=== PATIENT | male | born 1985 | race Caucasian/White ===

== ENCOUNTER 2016-08-26 20:45 | Inpatient (IN) | payer SELFPAY ==
--- NOTE | ~2016-08-26 | CN ---
Consultation Report [facility] [address] [place]. [address] NAME: CARLIN ROMAN : 87 STATUS : ADM IN [facility]#: [id number] AGE: 30 ADM/REG DATE : 08/26/16 MR#: [id number] REPORT SERV DATE: 08/27/16 DICTATED BY: AUSTIN OTERO DATE: 08/27/16 REPORT STATUS : Draft TRANSCRIBED BY: MODFelicia DATE: 08/27/16 INFECTIOUS DISEASE CONSULT DATE OF CONSULTATION: REASON FOR CONSULT: Possible endocarditis HISTORY OF PRESENT ILLNESS: 30 years old white male, with a long history of IV drug use, MSSA empyema, and possible endocarditis in 2012, status post decortication, tricuspid valve endocarditis, with lung emboli in 2014, treated here at [facility]. He presented with several days of shortness of breath, whole body aches, swelling from the ankles and then lower legs, rash that progressed quickly from the ankles to the entire legs and lower trunk. He is injecting himself of preference with Opana, but had to resort to heroin because of the cost. He uses bottled water and reuses needles that he washes with alcohol. He filters through cotton. He went to the emergency room at [place] I think on 08/24/2016. The records indicate that he was given vancomycin or they intended to give him vancomycin. He was then transferred to [place] where he states he stayed in the ER for 16 hours, but he felt he was not getting adequate treatment so he left. Microbiology records from [place] indicates that blood culture grew MRSA, with SERVANDO to vancomycin of 2, SERVANDO to daptomycin of 1. Similarly, blood culture at [place] grew MRSA with SERVANDO to vancomycin of 1 and 2 daptomycin of 0.5. After he left [place], he went home and then came here. From what the nurse tells me, he injected himself perhaps at home. When he arrived here in the emergency room, he was hypotensive, we could not get a central line, or he refused to get one, more blood cultures were collected and it sounds like he was given vancomycin. To which cefepime was added. LABORATORY DATA: Lab work showed a WBC of 5.5, hemoglobin 11, potassium 3.2, creatinine 0.7. Lactic acid 2.3, procalcitonin 0.39. Currently, he is in MICU. He is on Levophed at 10. It appears that he is producing urine. He has body aches. He had one soft stool. No urinary symptoms. No recent boils or wounds. Although, two weeks ago he had the left antecubital area boil or wounds that he popped himself with a switch box installer. He has some neck pain. Chest x-ray today shows progressing bilateral multifocal airspace disease. Lab work shows procalcitonin of 0.32, creatinine 0.5. WBC increased to 12.9, hemoglobin 10, platelets 190. Urine drug screen positive for opiates. Urinalysis with 1 white blood cells, many bacteria. CPK 14, bilirubin 1.5. Transaminases within normal limits. PAST MEDICAL HISTORY: As I mentioned above, plus he had positive hepatitis C antibodies in the past, history of kidney stones, arachnoid cyst, and maybe left deafness. FAMILY HISTORY: Diabetes. Consultation Report [address] [place]. [address] NAME: CARLIN ROMAN : 87 STATUS : ADM IN [facility]#: [id number] AGE: 30 ADM/REG DATE : 08/26/16 MR#: [id number] REPORT SERV DATE: 08/27/16 DICTATED BY: AUSTIN OTERO DATE: 08/27/16 REPORT STATUS : Draft TRANSCRIBED BY: MARTIN DATE: 08/27/16 SOCIAL HISTORY: He is a smoker. Uses IV drugs as I mentioned. It sounds like he lives in his grandmother's house, but I am not sure with whom. He does not work, might have been incarcerated recently, I did not ask details. MEDICATIONS ON ADMISSION: According to the chart include oxycodone. ALLERGIES: MEDICATIONS ADVERSE REACTIONS, PHENERGAN "MAKES HIM FEEL FUNNY." PHYSICAL EXAMINATION: GENERAL: Exam done in presence of his nurse Joycelyn, as well as the interview. He is alert and awake. HEENT: He has some oral mucosa erythema. He has broken teeth. HEART: Regular rhythm without any loud murmurs. LUNGS: Decreased sounds throughout, most at the left base. ABDOMEN: He does not relax it well for exam, not tender. EXTREMITIES: Hands and feet without signs of emboli. SKIN: He had a very faint redness on the feet and no obvious rash. He has a little scar on the left medial antecubital area. He has other scars over his forearms. His right hand is swollen. He has a good right radial artery pulse. ASSESSMENT/PLAN: 1. Methicillin-resistant Staphylococcus aureus sepsis with bacteremia and shock. 2. Bilateral lung infiltrates with cavitation in the right apex according to CT done at [place]. This is concerning for septic emboli. 3. Reported rash that appeared to have resolved. 4. IV drug use. 5. History of Methicillin-sensitive Staphylococcus aureus empyema in 2013 and history of Methicillin-resistant Staphylococcus aureus tricuspid valve endocarditis in 2015. Continue vancomycin. Discontinue cefepime. Pursue echocardiogram, first a transthoracic and he might need a transesophageal. He states recent HIV screen in assisted was negative and he does not need to be screened again. He agreed with viral hepatitis screening, actually he requested a hepatitis C viral load because he had a prior positive antibody and we will screen for hepatitis B with a surface antigen. Obviously, he needs treatment for addiction, because this would be his third episode of severe infection. He agreed to discussed about this and I asked the [facility] patient vice president safety to discussed with the patient, possibilities of treatment. I discussed with the patient and his nurse. IKER/MARTIN Austin Otero, Consultation Report [address] [place]. [address] NAME: CARLIN ROMAN : 87 STATUS : ADM IN [facility]#: [id number] AGE: 30 ADM/REG DATE : 08/26/16 MR#: [id number] REPORT SERV DATE: 08/27/16 DICTATED BY: AUSTIN OTERO DATE: 08/27/16 REPORT STATUS : Draft TRANSCRIBED BY: MARTIN DATE: 08/27/16 Gurvinder / [id number] CC: Brad Parnell M.D.
--- NOTE | ~2016-08-26 | CN ---
Consultation Report [facility] [address] [place]. [address] NAME: CARLIN ROMAN : 87 STATUS : ADM IN [facility]#: [id number] AGE: 30 ADM/REG DATE : 08/26/16 MR#: [id number] REPORT SERV DATE: 08/27/16 DICTATED BY: CHRISTOPHER PARNELL DATE: 08/27/16 REPORT STATUS : Draft TRANSCRIBED BY: MARTIN DATE: 08/27/16 CRITICAL CARE CONSULTATION. GREATER THAN 30 MINUTES CRITICAL CARE TIME. DATE OF CONSULTATION: HISTORY OF PRESENT ILLNESS: The patient arrived in the Medical ICU from the emergency room. He is a 30-year-old white male, drug user, who presents now with several week history of not feeling well, stiffness, pain, shaking chills. He is seen at [facility] last week and they told him he had pneumonia. He went home. Unclear if he left AMA or not. The patient was feeling awful for the past several days. He has had symptoms of shortness of breath. Information is also coupled with review of his [facility] records. The patient says he has been told he had a heart murmur last week at [facility], it is unclear if he has had this before. He describes diffuse pain in joints and limbs. He uses Opana and mixture of other narcotics and possibly . He says he has this rash that has developed over his whole body but it does not itch, not painful. He also has cramping myalgias. The rash does jordon. He has lost about 15 to 20 pounds. Poor appetite. PAST MEDICAL HISTORY: Significant for endocarditis in 2013 with MRSA bacteremia and septic emboli. He had empyema, 2015 with VAST procedure. He has had hepatitis C and has never been treated. He has history of arachnoid cyst in brain with some slight shift. PAST SURGICAL HISTORY: VATS procedure. He also has had renal stone, and he thinks he has hematuria. ALLERGIES: HE IS ALLERGIC TO TRAMADOL, TORADOL, DEMEROL, AND PHENERGAN. SOCIAL HISTORY: Smokes three-quarters pack per day. Does not drink. Uses Opana, amphetamines, heroin, and cocaine. FAMILY HISTORY: Significant for diabetes. MEDICATIONS: Currently using oxycodone 10 mg b.i.d. PHYSICAL EXAMINATION: VITAL SIGNS: On examination, he is a thin young male, who is having some myalgias throughout his entire body, red in appearance with blanching rash over most of his body. HEENT: Head is normocephalic. Sclerae and conjunctivae are clear at this time. NECK: Supple. Very poor dentition. CHEST: Clear to auscultation and percussion. No wheezing or rhonchi. CARDIAC: S1 and S2. There is distinct 3/6 murmur heard best at the base, radiating up. ABDOMEN: Scaphoid. Slightly tender to palpation. No rebound. EXTREMITIES: Swelling around the joints. No adenopathy noted. No abdominal organomegaly Consultation Report [place] [id number] [facility] [place]. [address] NAME: CARLIN ROMAN : 87 STATUS : ADM IN [facility]#: [id number] AGE: 30 ADM/REG DATE : 08/26/16 MR#: [id number] REPORT SERV DATE: 08/27/16 DICTATED BY: CHRISTOPHER PARNELL DATE: 08/27/16 REPORT STATUS : Draft TRANSCRIBED BY: MARTIN DATE: 08/27/16 noted. NEUROLOGIC: Cranial nerves 2 through 12 appear to be intact. He is oriented x3. He can move all extremities to this time. He has evidence of injection dsouza over his limbs. The capillary refill is good. REVIEW OF SYSTEMS: Negative except for what he claims is hematuria, but he says it is orange, I suspect, it may be related to the liver dysfunction. Also has chronic pain syndrome, being treated by a physician. LABORATORY DATA: Show procalcitonin 0.39. Sodium 136, potassium 3.2, chloride 102, carbon dioxide 26, BUN 7, creatinine 0.72, glucose 116, calcium 7.7, total protein 5.9, albumin 2.2, total bilirubin 1.4. ALT is 24, AST 22, alkaline phosphatase 84, acetaminophen level 2.6. Salicylate 1.7. Alcohol less than 10. Urine drug screen shows positive for opiates. BNP is 100.1. Urinalysis shows no hematuria. Urobilinogen of 2. No proteinuria noted. Lactate level is 2.3. His CBC shows an H and H 11.4 and 32.3, white count 5500, platelet count 180,000. PTT 33.8, INR 1.7. Differential has not been done. His chest x-ray shows possible evidence of a new septic embolism to the left upper chest versus nodule. Cardiac size is slightly enlarged. Pulmonary arteries appear to be within normal limits. No other infiltrates seen at this time. Compare with the x-ray of October 2014, there was no nodule at that time in the left upper lobe. IMPRESSION: 1. Possible acute endocarditis. 2. Hepatitis C. 3. Current drug use. 4. Diffuse rash with myalgias suspect toxic shock syndrome. PLAN: Continue lab. Antibiotics started in the ER. The patient currently is refusing central line access despite being given information regarding the effects of hypotension on his outcome of his kidney function and the fact that pressors may extravasate into the skin. The report of chest CTA, chest performed at [facility] this past week showed patchy infiltrates in the right perihilar mid lung field and medial aspect of the right upper lobe, most compatible pneumonia possible small right pleural effusion. CTA of the chest, numerous patchy opacities scattered throughout the lungs bilaterally, largest in the right lung apex medially with full cavitation. He has some adenopathy noted in the right hilum. Also septic emboli is in the differential as well as the chronic arachnoid cyst. We will have ID consult, and I will get a formal echocardiogram in the morning. Bedside echocardiogram by myself reveals a heart that is full, slightly dilated LV. There may be a vegetation on the valve on the left side. We will continue nafcillin and cefepime. He is on Lovenox subcu. RP/MODL Consultation Report [place] [id number] [place] [address] NAME: CARLIN ROMAN : [birth year] STATUS : ADM IN [facility]#: [id number] AGE: 30 ADM/REG DATE : 08/26/16 MR#: [id number] REPORT SERV DATE: 08/27/16 DICTATED BY: CHRISTOPHER PARNELL DATE: 08/27/16 REPORT STATUS : Draft TRANSCRIBED BY: MODL DATE: 08/27/16 Christopher Parnell M.D. / [id number] CC: Christopher Parnell M.D.
--- NOTE | ~2016-08-26 | DS ---
Discharge Summary [facility] [address] [place]. [address] NAME: CARLIN ROMAN : 87 STATUS : DIS IN PAT#: [id number] AGE: 30 ADM/REG DATE : 08/26/16 MR#: [id number] REPORT SERV DATE: 09/07/16 DICTATED BY: CHRISTOPHER INTERIANO DATE: 09/07/16 REPORT STATUS : Draft TRANSCRIBED BY: MARTIN DATE: 09/07/16 ADMISSION DATE: 08/26/2016 DISCHARGE DATE: 09/07/2016 FINAL DIAGNOSES: 1. Status post sepsis with shock. 2. MRSA bacteremia. 3. Tricuspid valve endocarditis. 4. IV drug abuse and opiate dependence. 5. Multifocal pneumonia. 6. History of large arachnoid cyst with chronic headache. CONSULTING PHYSICIAN: Dr. Parnell with Critical Care; Dr. Izquierdo for ID; Dr. Murdock for Cardiology; and Dr. Severino for Palliative Care. HOSPITAL COURSE: Please see the H and P done by Dr. Jenaro Sagastume dated on 08/27/2016 and the interim discharge summary done by Dr. Keenan on 09/07/2016. Since I took over today, the patient was seen by Palliative Care and I have discussed it with them that the patient is unhappy because he wants to have an increase in his pain medications. Dr. Moore has been dealing with him, and after much discussion, the patient will be placed on a higher dose of his medication care of Dr. Moore with the caveat that the patient would have his room checked if there is any kind of drug use. He has four other people in his room, and after a few hours, the patient decided that he would sign out against medical advice. The staff tried to convince him to stay, however, he refused. When we got the PICC line removed, we wanted him to stay for about an hour or so to make sure that it is doing well, but he walked out hopefully that he will follow up with a regular doctor and stop his IV drug use. Chances of him being readmitted is quite high. DICTATED BY: Gurvinder Valente/MARTIN Christopher Interiano M.D. / [id number] CC: Taqueria Ramirez M.D.
--- NOTE | ~2016-08-26 | HP ---
History And Physical [facility] [id number] [place]. [address] NAME: CARLIN ROMAN : 87 STATUS : ADM IN [facility]#: [id number] AGE: 30 ADM/REG DATE : 08/26/16 MR#: [id number] REPORT SERV DATE: 08/27/16 DICTATED BY: TERRY DEAL DATE: 08/26/16 REPORT STATUS : Draft TRANSCRIBED BY: MODFelicia DATE: 08/26/16 DATE OF ADMISSION: 08/26/2016 CHIEF COMPLAINT: A 30-year-old male with no primary care physician, now presenting with fevers, chills, lightheadedness, and near syncope. HISTORY OF PRESENTING ILLNESS: The patient's history was obtained through an interview with the patient and brother, coupled with review of [facility] medical records. The patient states that for about a week, he has been feeling ill, but over the last four days, he has had symptoms that include shortness of breath, dyspnea on exertion, near syncope, lightheadedness, and confusion. He has also developed increasing fevers and chills constantly. He describes initial pain in his ankles bilaterally with swelling. It has gotten to the point where he cannot even walk on his feet, but then he seems to have developed increasing swelling and pain that first extended up his legs through his torso and abdomen, and now seems to affect every muscle in his body as he describes it. He describes a cramping myalgia-like pain stating "I can't move" because of the pain, discomfort, and 9/10 severity that is constant. He has noticed a blanching red rash over his entire body. It does not itch. It is not painful. He has had nonproductive cough. He has lost about 20 pounds in the last week by his own recollection. He has had a very poor appetite with occasional nausea and vomiting. No diarrhea. REVIEW OF SYSTEMS: Otherwise, a 14-point review of systems was obtained and was negative. PAST MEDICAL HISTORY: 1. Hepatitis C, but has never been treated. 2. Endocarditis of the tricuspid valve in 10/2014 with MRSA bacteremia and septic emboli. 3. Empyema with VATS procedure in 2014. 4. Brain tumor/arachnoid cyst with chronic headaches. PAST SURGICAL HISTORY: VATS procedure for empyema. ALLERGIES: TRAMADOL, TORADOL, DEMEROL, AND PHENERGAN. SOCIAL HISTORY: The patient is a smoker. Does not drink alcohol. He has a longstanding history of IV drug abuse including cocaine, heroin, amphetamines, Opana, and marijuana. He is unemployed right now, living with his mother. He lives in [place], [place]. History And Physical [address] [address] NAME: CARLIN ROMAN : 87 STATUS : ADM IN [facility]#: [id number] AGE: 30 ADM/REG DATE : 08/26/16 MR#: [id number] REPORT SERV DATE: 08/27/16 DICTATED BY: TERRY DEAL DATE: 08/26/16 REPORT STATUS : Draft TRANSCRIBED BY: MARTIN DATE: 08/26/16 FAMILY HISTORY: Diabetes. CURRENT MEDICATIONS: Include Roxicodone 10 mg p.o. b.i.d. PHYSICAL EXAMINATION: VITAL SIGNS: Temperature 101.2, pulse 120, blood pressure 76/43, respiratory rate 23, O2 saturation 98% on room air. GENERAL: An ill-appearing male in evidence of distress secondary to his pain complaint. HEENT: Pupils equal, round, and reactive to light. No conjunctival pallor. No scleral icterus. Nares are patent. Oropharynx is clear of obstruction. Moist mucous membranes. No intraoral lesions. NECK: Trachea midline. No thyromegaly. LYMPH: No cervical lymphadenopathy. No supraclavicular lymphadenopathy. No inguinal lymphadenopathy. RESPIRATORY: Clear to auscultation by my exam. No wheezes, no rales, no rhonchi. Tachypnea with pronounced breathing effort is noted. CARDIOVASCULAR: Tachycardic, regular rhythm. I find it difficult to appreciate murmurs on exam because of his rapid heart rate, but there may be some "swishing" murmur like sounds through his chest. No rubs or gallops are appreciated. No extremity edema is appreciated. ABDOMEN: Diffusely tender by exam, but nonfocal. No rebound, no guarding. Nondistended. No hepatosplenomegaly is appreciated. DERMATOLOGICAL: The patient has a blanching, erythematous rash over almost his entire body. He is very warm to the touch, diaphoretic. Otherwise, no pallor, no cyanosis. PSYCHIATRIC: An irritable affect and mood. Alert and oriented x3. LABORATORY DATA: White blood cell count 5.5, hemoglobin 11, hematocrit 32, platelets 180. Sodium 136, potassium 3.2, chloride 102, bicarb 26, BUN 7, creatinine 2.72, glucose 116, brain natriuretic peptide 100, lactic acid 2.3. INR 1.1. Liver enzymes, within normal limits. STUDIES: 1. Chest x-ray by my own evaluation shows perhaps some chronic lung changes from previous interventions (VATS), but compared to old x-ray, I cannot really say that there is anything acute going on. 2. EKG by my own evaluation shows sinus tachycardia, no major abnormalities otherwise. ASSESSMENT AND PLAN: 1. Severe sepsis with shock. Lactic acid of 2.3. Tachycardia, tachypnea, shock, persistent and elevated fevers with history of encephalopathy. Persistent shock despite multiple IV fluid boluses, but unable to do pressors in the emergency department because of the patient's repeated refusal to have central access placed and he only has a 22-gauge IV at this time. We will check blood cultures. Place on IV vancomycin and IV cefepime, and continue aggressive IV fluid resuscitation. 2. Suspected endocarditis. Check an echocardiogram. History of methicillin-resistant Staphylococcus aureus. 3. Hepatitis C. History And Physical [address] [address] NAME: CARLIN ROMAN : 87 STATUS : ADM IN [facility]#: [id number] AGE: 30 ADM/REG DATE : 08/26/16 MR#: [id number] REPORT SERV DATE: 08/27/16 DICTATED BY: TERRY DEAL DATE: 08/26/16 REPORT STATUS : Draft TRANSCRIBED BY: MARTIN DATE: 08/26/16 4. Polysubstance abuse with history of IV drug abuse. 5. IV access issues. The patient repeatedly refuses to have a central line access. He is okay with having a PICC line placed first thing in the morning (which is about seven hours from now). The patient recognizes the risk of even without appropriate IV access in his condition. We transferred the patient to the MICU under the care of Dr. Parnell, who is aware of IV access issues and instability. JACKELYNL/MODL Terry Deal M.D. / [id number] CC: Brad Parnell M.D.
--- NOTE | ~2016-08-26 | IDS ---
Interim Discharge Summary [facility] [address] [place]. [address] NAME: CARLIN ROMAN : 87 STATUS : ADM IN [facility]#: [id number] AGE: 30 ADM/REG DATE : 08/26/16 MR#: [id number] REPORT SERV DATE: 09/07/16 DICTATED BY: MEREDITH BETTENCOURT II DATE: 09/06/16 REPORT STATUS : Draft TRANSCRIBED BY: MODL DATE: 09/06/16 ADMISSION DATE: 08/26/2016 DISCHARGE DATE: DATE OF INTERIM: 09/06/2016. INTERIM DIAGNOSES: 1. Severe sepsis with shock, resolved. 2. Methicillin-resistant Staphylococcus aureus bacteremia. 3. Tricuspid valve endocarditis. 4. IV drug abuse and opiate dependence. 5. Multifocal pneumonia. 6. History of large arachnoid cyst with chronic headache. CONSULTS: 1. Brad Parnell M.D., with Critical Care. 2. Austin Izquierdo M.D., with Infectious Disease. 3. Jeff Murdock M.D., with Cardiology. PROCEDURES: Transesophageal echo which showed definitive new endocarditis with an independently mobile echodensity associated with the posterior tricuspid valve leaflet tip. The lesion is approximately 1.6 cm in length. There is also evidence of old tricuspid valve endocarditis and severe tricuspid regurgitation due to septal and anterior leaflet, now coaptation. Dilated right-sided chambers, normal LV size with low-normal systolic function, EF 45%. BRIEF HISTORY OF PRESENT ILLNESS: The patient is a 30-year-old male with the above history, who presented to [facility] due to fevers, chills, and near syncope. For detailed history and physical examination, please see Dr. Sagastume's note from 08/26/2016. HOSPITAL COURSE: On admission, the patient presented with hypotension and a white count of 12.9. A chest x-ray with left upper lobe consolidation consistent with pneumonia. Given his history of IV drug abuse, endocarditis was suspected. An echocardiogram showed mildly decreased LV systolic function with EF 45%, with severe tricuspid regurgitation, though no evidence of vegetation. The patient was given antibiotics and monitored in the ICU initially and eventually transferred to the floor. Infectious Disease was involved and given the multifocal nature of his pneumonia and blood cultures with MRSA endocarditis was highly suspected. The patient eventually agreed to a transesophageal echo which showed the above-mentioned results and clear endocarditis which was acute as well as the old chronic. Clearly, he will need 6 weeks of IV antibiotics, however, given the patient's severe opiate dependence coming up with a disposition has been somewhat difficult. He does not have insurance and is unable to get home health with home IV antibiotics. Not to mention the risk of him returning to drug use which he is fairly forthright about and does not want to continue using, but would likely go back to using. He has been offered a risa bed at [facility] to continue his IV antibiotics which he is agreeable to, though reluctant unless he is able to have adequate oral opiate coverage. He was initially started on 1.5 of Dilaudid IV q.3 Interim Discharge Summary [address] [place]. [address] NAME: CARLIN ROMAN : 87 STATUS : ADM IN PAT#: [id number] AGE: 30 ADM/REG DATE : 08/26/16 MR#: [id number] REPORT SERV DATE: 09/07/16 DICTATED BY: MEREDITH BETTENCOURT II DATE: 09/06/16 REPORT STATUS : Draft TRANSCRIBED BY: MARTIN DATE: 09/06/16 hours and was initially changed to q.4 hours when he got to the floor. The patient is highly anxious about switching to oral as he was taking upwards of 120 mg of Opana daily IV and has already had fairly significant sweats and withdrawal on the current dose. The patient has stated multiple times if he is not able to have an adequate coverage for his narcotic then he would very unlikely be able to stay in this facility and would go back to and using IV narcotics. I have discussed the case with Dr. Ford and the case management team and Dr. Ford has recommended discussing with Dr. Severino for further assistance with transitioning the patient to an oral regimen. We will await Dr. Severino's consultation as he was away from the hospital today. Reportedly, the risa bed take some time to arrange, but [facility] is following and will let us know when he is improved. Dr. Prieto will take over the patient's care starting tomorrow. PETER/MARTIN Meredith Bettencourt II, MD / [id number] CC: Meredith Bettencourt II, MD NO PCP
--- NOTE | ~2016-08-26 | TEE ---
Transesophageal Echocardiogram [facility] [address] [place]. [address] NAME: CARLIN ROMAN : 87 STATUS : ADM IN [facility]#: [id number] AGE: 30 ADM/REG DATE : 08/26/16 MR#: [id number] REPORT SERV DATE: 09/02/16 DICTATED BY: JEFF BENNETT DATE: 09/02/16 REPORT STATUS : Draft TRANSCRIBED BY: MODFelicia DATE: 09/02/16 VEL REPORT REQUESTING PHYSICIAN: Vidal Fallon M.D., Ph.D., F.A.C.C. 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 PROCEDURES PERFORMED: Included 2D, 3D, color, and spectral Doppler. 3D interrogation of the tricuspid valve was performed with personal online manual manipulation of the 3D data set to further assess tricuspid valve anatomy and endocarditis. Informed consent was obtained, signed on the chart prior to proceeding. A time-out was performed. Sedation was per Anesthesia, and esophageal intubation was without difficulty. TECH: TD and the overall quality of the study was good. FINDINGS: VALVES: 1. The tricuspid valve morphology is normal. There is definitive new endocarditis with an independently mobile echodensity associated with the posterior tricuspid valve leaflet tip. This lesion is approximately 1.6 cm in length. There is evidence of old tricuspid valve endocarditis with a thickened and sclerotic retracted septal leaflet of the tricuspid valve. There was a dilated tricuspid anulus with now coaptation of septal and anterior leaflets with severe tricuspid regurgitation. There is thick systolic flow reversal noted with color and spectral Doppler in the hepatic vein again consistent with severe tricuspid regurgitation. 2. The pulmonic valve was grossly normal with adequate mobility. There were no vegetations. There was mild pulmonic regurgitation. 3. The mitral valve morphology was normal with fully mobile leaflets. There were no valvular vegetations. There was trace mitral regurgitation. 4. The aortic valve morphology was normal and trileaflet. Leaflets were fully mobile. There were no vegetations. There was no aortic regurgitation. CHAMBERS: 1. The right atrium appears mildly dilated. The superior and inferior vena cava appeared normal. 2. The right ventricle was mildly moderately dilated with low normal systolic function. 3. The left atrium was normal in size. There was no mass or thrombus seen. 4. The left ventricle was normal in size with low normal to mildly reduced systolic function, EF 45% with mild global hypocontractility. OTHER: The interatrial septum was examined with multiple depths and angulations and appeared intact by visual inspection with no evidence of interatrial shunt by color Doppler. There was trivial pericardial fluid seen. There was trivial pleural fluid seen. The descending thoracic aorta was normal in caliber with no atherosclerosis. Transesophageal Echocardiogram [address] [address] NAME: CARLIN ROMAN : 87 STATUS : ADM IN PAT#: [id number] AGE: 30 ADM/REG DATE : 08/26/16 MR#: [id number] REPORT SERV DATE: 09/02/16 DICTATED BY: JEFF BENNETT. DATE: 09/02/16 REPORT STATUS : Draft TRANSCRIBED BY: MARTIN DATE: 09/02/16 COMPLICATIONS: None. CONCLUSION: 1. DEFINITIVE ENDOCARDITIS OF THE TRICUSPID VALVE INVOLVING TIP OF THE POSTERIOR LEAFLET WITH A 1.6 CM INDEPENDENTLY MOBILE ECHO DENSITY DESCRIBED ABOVE. 2. 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 3. SEVERE TRICUSPID REGURGITATION DUE TO SEPTAL AND ANTERIOR LEAFLET NOW COAPTATION DESCRIBED ABOVE. 4. DILATED RIGHT-SIDED CHAMBERS. 5. NORMAL LV SIZE WITH LOW NORMAL SYSTOLIC FUNCTION, EF 45%. 6. INTACT INTERATRIAL SEPTUM. AEA/MARTIN Jeff Bennett M.D. / [id number] CC: Mario Keenan II, MD
[~2016-08-26 20:45] MED LIST: AMB10 PO; LORTAB 5 PO; MELA3 PO; NICODERM C14 MG/24 H TOP; OPANA ER15 MG PO; ZYVOXPO PO
[2016-08-26 20:55] LABS: BASOPHILS 0 %; EOSINOPHILS 1.1 %; EOSINOPHILS ABSOLUTE 0.06 10/3/uL (0.0-0.53); HEMATOCRIT 32.3 % (40.0-51.0); HEMOGLOBIN 11.4 g/dL (13.6-17.8); IMMATURE GRANULOCYTES 0.4 %; IMMATURE GRANULOCYTES ABSOLUTE 0.02 10/3/uL (0.0-0.11); LYMPHOCYTES 9.4 %; LYMPHOCYTES ABSOLUTE 0.51 10/3/uL (0.67-4.30); MEAN CORPUSCULAR HEMOGLOB 29.3 pg (26.0-34.0); MEAN PLATELET VOLUME 9.9 fL (9.2-13.0); MONOCYTES 4.8 %; MONOCYTES ABSOLUTE 0.26 10/3/uL (0.21-1.20); NEUTROPHILS 84.3 %; RBC DISTRIBUTION WIDTH 13.7 % (12.0-16.0); RED CELL COUNT 3.89 10/6/uL (4.7-6.1)
[2016-08-26 20:56] LABS: ER CBC TAT 0 Hrs 08 Mins; MANUAL DIFF NO %; MEAN CORPUS HGB CONC 35.3 g/dL (32.0-36.0); PLATELET COUNT 180 10/3/uL (150-400); WHITE BLOOD CELLS 5.5 10/3/uL (4.5-10.5)
[2016-08-26 21:04] LABS: INTERNATIONAL NORMAL RATI 1.1 UNITS (-); PROTIME (NOT ORD) 14.2 SEC (12.0-14.5)
[2016-08-26 21:05] LABS: PARTIAL THROMBO TIME 33.8 SEC (22.5-37.2)
[2016-08-26 21:11] LABS: A/G RATIO 0.6 (0.7-1.9); ALBUMIN 2.2 G/DL (3.5-5.0); ALKALINE PHOSPHATASE 84 U/L (45-117); BUN (BLOOD UREA NITROGEN) 7 MG/DL (6-23); CALCIUM, SERUM 7.7 MG/DL (8.5-10.4); CHLORIDE, SERUM 102 MMOL/L (96-112); CO2 (CARBON DIOXIDE) 26 MMOL/L (24-34); CREATININE 0.72 MG/DL (0.70-1.30); GFR AFRICAN AMERICAN 146 ML/MIN (>=60); GFR NON AFRICAN AMERICAN 126 ML/MIN (>=60); GLOBULIN 3.7 G/DL (2.5-4.1); GLUCOSE, SERUM 116 MG/DL (60-99); POTASSIUM, SERUM 3.2 MMOL/L (3.5-5.3); SGOT(AST) 22 U/L (5-40); SGPT(ALT) 24 U/L (5-65); SODIUM, SERUM 136 MMOL/L (135-148); TOTAL BILIRUBIN 1.4 MG/DL (0-1.2); TOTAL PROTEIN 5.9 G/DL (6.0-8.5)
[2016-08-26 21:12] LABS: LACTATE 2.3 MMOL/L (0.3-2.4)
[2016-08-26] MEDS ORDERED: OXYCOD PO (21:32)
[2016-08-26 21:40] LABS: ACETAMINOPHEN LEVEL (TYLENOL) 2.6 MCG/ML (10.0-20.0)
[2016-08-26 21:41] LABS: SALICYLATE < 1.7 MG/DL (-)
[2016-08-26 21:42] LABS: ALCOHOL < 10 MG/DL (0)
[2016-08-26 21:51] LABS: ASCORBIC ACID (UR NOT ORDER) NEG (NEG); BILIRUBIN, URINE NEGATIVE (NEG); ER URINALYSIS TAT 0 Hrs 12 Mins; KETONE, URINE NEGATIVE (NEG); LEUKOCYTE ESTERASE(NOT OR NEG (NEG); NITRITE (URINE) NEG (NEG); WBC (NOT ORDERED) (RFLEX) 2 (0-5)
[2016-08-26 22:03] LABS: AMPHETAMINES (NOT ORD) NEG (NEG); BARBITURATES (NOT ORDERED NEG (NEG); BENZODIAZEPINES (NOT ORD) NEG (NEG); CANNABINOIDS (THC) NEG (NEG); COCAINE (NOT ORDERED) NEG (NEG); OPIATES POS (NEG); PHENCYCLIDINE(PCP) NEG (NEG); TRICYCLICS NEG (NEG)
[2016-08-26 22:22] LABS: PROCALCITONIN 0.39 ng/mL (<0.5)
[2016-08-27 03:07] LABS: BUN (BLOOD UREA NITROGEN) 7 MG/DL (6-23); CHLORIDE, SERUM 103 MMOL/L (96-112); CO2 (CARBON DIOXIDE) 26 MMOL/L (24-34); CREATININE 0.75 MG/DL (0.70-1.30); GFR AFRICAN AMERICAN 144 ML/MIN (>=60); GFR NON AFRICAN AMERICAN 124 ML/MIN (>=60); SODIUM, SERUM 138 MMOL/L (135-148)
[2016-08-27 03:11] LABS: CALCIUM, SERUM 6.7 MG/DL (8.5-10.4); GLUCOSE, SERUM 81 MG/DL (60-99); POTASSIUM, SERUM 2.8 MMOL/L (3.5-5.3)
[2016-08-27 03:42] LABS: PROCALCITONIN 0.32 ng/mL (<0.5)
[2016-08-27 04:45] LABS: PHOSPHORUS, SERUM 3.2 MG/DL (2.5-4.5)
[2016-08-27 07:26] LABS: ASCORBIC ACID (UR NOT ORDER) NEG (NEG); BILIRUBIN, URINE NEGATIVE (NEG); KETONE, URINE NEGATIVE (NEG); LEUKOCYTE ESTERASE(NOT OR NEG (NEG); WBC (NOT ORDERED) (RFLEX) 1 (0-5)
[2016-08-27 08:15] LABS: BASOPHILS 0.1 %; BASOPHILS ABSOLUTE 0.01 10/3/uL (0.0-0.16); EOSINOPHILS 1.1 %; EOSINOPHILS ABSOLUTE 0.14 10/3/uL (0.0-0.53); IMMATURE GRANULOCYTES 0.5 %; IMMATURE GRANULOCYTES ABSOLUTE 0.07 10/3/uL (0.0-0.11); LYMPHOCYTES 8.9 %; LYMPHOCYTES ABSOLUTE 1.15 10/3/uL (0.67-4.30); MEAN CORPUS HGB CONC 35.3 g/dL (32.0-36.0); MEAN CORPUSCULAR HEMOGLOB 29.3 pg (26.0-34.0); MEAN PLATELET VOLUME 9.7 fL (9.2-13.0); MONOCYTES 5.4 %; NEUTROPHILS ABSOLUTE 10.82 10/3/uL (2.02-8.40); PLATELET COUNT 190 10/3/uL (150-400); RBC DISTRIBUTION WIDTH 13.8 % (12.0-16.0); RED CELL COUNT 3.41 10/6/uL (4.7-6.1)
[2016-08-27 08:16] LABS: HEMATOCRIT 28.3 % (40.0-51.0); MANUAL DIFF NO %; WHITE BLOOD CELLS 12.9 10/3/uL (4.5-10.5)
[2016-08-27 08:23] LABS: INTERNATIONAL NORMAL RATI 1.3 UNITS (-); PARTIAL THROMBO TIME 38.5 SEC (22.5-37.2)
[2016-08-27 08:24] LABS: PROTIME (NOT ORD) 16.5 SEC (12.0-14.5)
[2016-08-27 08:29] LABS: INFLUENZA A SCREEN NEGATIVE (NEGATIVE); INFLUENZA B SCREEN NEGATIVE (NEGATIVE)
[2016-08-27 08:36] LABS: A/G RATIO 0.5 (0.7-1.9); ALKALINE PHOSPHATASE 82 U/L (45-117); BUN (BLOOD UREA NITROGEN) 5 MG/DL (6-23); CHLORIDE, SERUM 107 MMOL/L (96-112); CO2 (CARBON DIOXIDE) 27 MMOL/L (24-34); CPK 14 U/L (0-200); CREATININE 0.57 MG/DL (0.70-1.30); GFR AFRICAN AMERICAN 161 ML/MIN (>=60); GFR NON AFRICAN AMERICAN 139 ML/MIN (>=60); GLOBULIN 3.2 G/DL (2.5-4.1); POTASSIUM, SERUM 3.2 MMOL/L (3.5-5.3); SGOT(AST) 22 U/L (5-40); SGPT(ALT) 22 U/L (5-65); SODIUM, SERUM 143 MMOL/L (135-148); TOTAL BILIRUBIN 1.5 MG/DL (0-1.2); TOTAL PROTEIN 4.9 G/DL (6.0-8.5); TROPONIN I <0.02 NG/ML (<0.05); ULTRASENSITIVE TSH 0.823 MCIU/ML (0.358-3.740)
[2016-08-27 08:37] LABS: ALBUMIN 1.7 G/DL (3.5-5.0); CALCIUM, SERUM 6.9 MG/DL (8.5-10.4); GLUCOSE, SERUM 107 MG/DL (60-99)
[2016-08-27 08:44] LABS: B NATRIURETIC PEPTIDE (BNP) 208.7 PG/ML (< 100.0)
[2016-08-27 08:55] LABS: CALCIUM IONIZED 4.16 MG/DL (3.80-4.80)
[2016-08-28 09:57] LABS: BUN (BLOOD UREA NITROGEN) 7 MG/DL (6-23); CALCIUM, SERUM 7.3 MG/DL (8.5-10.4); CHLORIDE, SERUM 108 MMOL/L (96-112); CO2 (CARBON DIOXIDE) 27 MMOL/L (24-34); CPK 10 U/L (0-200); CREATININE 0.43 MG/DL (0.70-1.30); GFR AFRICAN AMERICAN 181 ML/MIN (>=60); GFR NON AFRICAN AMERICAN 156 ML/MIN (>=60); PHOSPHORUS, SERUM 3.2 MG/DL (2.5-4.5); POTASSIUM, SERUM 3.7 MMOL/L (3.5-5.3); SODIUM, SERUM 141 MMOL/L (135-148)
[2016-08-28 09:59] LABS: GLUCOSE, SERUM 74 MG/DL (60-99)
[2016-08-29 03:51] LABS: BASOPHILS 0.2 %; BASOPHILS ABSOLUTE 0.01 10/3/uL (0.0-0.16); EOSINOPHILS 9.1 %; EOSINOPHILS ABSOLUTE 0.51 10/3/uL (0.0-0.53); HEMATOCRIT 27.2 % (40.0-51.0); HEMOGLOBIN 9.6 g/dL (13.6-17.8); IMMATURE GRANULOCYTES 0.2 %; IMMATURE GRANULOCYTES ABSOLUTE 0.01 10/3/uL (0.0-0.11); LYMPHOCYTES 24.5 %; LYMPHOCYTES ABSOLUTE 1.37 10/3/uL (0.67-4.30); MEAN CORPUS HGB CONC 35.3 g/dL (32.0-36.0); MEAN CORPUSCULAR HEMOGLOB 29.7 pg (26.0-34.0); MEAN CORPUSCULAR VOLUME 84.2 fL (80-100); MEAN PLATELET VOLUME 9.4 fL (9.2-13.0); MONOCYTES 6.4 %; MONOCYTES ABSOLUTE 0.36 10/3/uL (0.21-1.20); NEUTROPHILS 59.6 %; NEUTROPHILS ABSOLUTE 3.33 10/3/uL (2.02-8.40); PLATELET COUNT 214 10/3/uL (150-400); RBC DISTRIBUTION WIDTH 14.1 % (12.0-16.0); RED CELL COUNT 3.23 10/6/uL (4.7-6.1)
[2016-08-29 04:06] LABS: BUN (BLOOD UREA NITROGEN) 9 MG/DL (6-23); CALCIUM, SERUM 7.7 MG/DL (8.5-10.4); CHLORIDE, SERUM 105 MMOL/L (96-112); CREATININE 0.63 MG/DL (0.70-1.30); GFR AFRICAN AMERICAN 154 ML/MIN (>=60); GFR NON AFRICAN AMERICAN 133 ML/MIN (>=60); GLUCOSE, SERUM 88 MG/DL (60-99); POTASSIUM, SERUM 3.3 MMOL/L (3.5-5.3); SODIUM, SERUM 141 MMOL/L (135-148); VANCOMYCIN TROUGH 11.3 MCG/ML (10.0-20.0)
[2016-08-29 04:09] LABS: CO2 (CARBON DIOXIDE) 32 MMOL/L (24-34)
[2016-08-29 04:12] LABS: MANUAL DIFF NO %; WHITE BLOOD CELLS 5.6 10/3/uL (4.5-10.5)
[2016-08-29 04:43] LABS: PROCALCITONIN 0.07 ng/mL (<0.5)
[2016-08-30 04:41] LABS: BASOPHILS 0.4 %; BASOPHILS ABSOLUTE 0.02 10/3/uL (0.0-0.16); EOSINOPHILS 8.5 %; EOSINOPHILS ABSOLUTE 0.44 10/3/uL (0.0-0.53); IMMATURE GRANULOCYTES 0.6 %; IMMATURE GRANULOCYTES ABSOLUTE 0.03 10/3/uL (0.0-0.11); LYMPHOCYTES 34.8 %; MEAN CORPUS HGB CONC 34.1 g/dL (32.0-36.0); MEAN CORPUSCULAR HEMOGLOB 28.9 pg (26.0-34.0); MEAN CORPUSCULAR VOLUME 84.7 fL (80-100); MEAN PLATELET VOLUME 9.4 fL (9.2-13.0); MONOCYTES 7.5 %; MONOCYTES ABSOLUTE 0.39 10/3/uL (0.21-1.20); NEUTROPHILS 48.2 %; NEUTROPHILS ABSOLUTE 2.49 10/3/uL (2.02-8.40); PLATELET COUNT 254 10/3/uL (150-400); RBC DISTRIBUTION WIDTH 14.2 % (12.0-16.0); WHITE BLOOD CELLS 5.2 10/3/uL (4.5-10.5)
[2016-08-30 04:56] LABS: BUN (BLOOD UREA NITROGEN) 10 MG/DL (6-23); CALCIUM, SERUM 8.3 MG/DL (8.5-10.4); CHLORIDE, SERUM 104 MMOL/L (96-112); CO2 (CARBON DIOXIDE) 28 MMOL/L (24-34); CREATININE 0.65 MG/DL (0.70-1.30); GFR AFRICAN AMERICAN 152 ML/MIN (>=60); GFR NON AFRICAN AMERICAN 131 ML/MIN (>=60); GLUCOSE, SERUM 86 MG/DL (60-99); HEMATOCRIT 34.3 % (40.0-51.0); HEMOGLOBIN 11.7 g/dL (13.6-17.8); POTASSIUM, SERUM 4.3 MMOL/L (3.5-5.3); RED CELL COUNT 4.05 10/6/uL (4.7-6.1); SODIUM, SERUM 139 MMOL/L (135-148)
[2016-08-30 04:57] LABS: MANUAL DIFF NO %
[2016-08-31 04:54] LABS: BASOPHILS 0.2 %; BASOPHILS ABSOLUTE 0.01 10/3/uL (0.0-0.16); EOSINOPHILS 7.6 %; EOSINOPHILS ABSOLUTE 0.45 10/3/uL (0.0-0.53); HEMATOCRIT 35.2 % (40.0-51.0); HEMOGLOBIN 12.2 g/dL (13.6-17.8); IMMATURE GRANULOCYTES ABSOLUTE 0.06 10/3/uL (0.0-0.11); LYMPHOCYTES 33.1 %; LYMPHOCYTES ABSOLUTE 1.96 10/3/uL (0.67-4.30); MEAN CORPUS HGB CONC 34.7 g/dL (32.0-36.0); MEAN CORPUSCULAR VOLUME 83.8 fL (80-100); MEAN PLATELET VOLUME 8.7 fL (9.2-13.0); MONOCYTES 10.1 %; NEUTROPHILS ABSOLUTE 2.85 10/3/uL (2.02-8.40); PLATELET COUNT 293 10/3/uL (150-400); RBC DISTRIBUTION WIDTH 13.9 % (12.0-16.0); WHITE BLOOD CELLS 5.9 10/3/uL (4.5-10.5)
[2016-08-31 04:55] LABS: MANUAL DIFF NO %
[2016-08-31 05:12] LABS: BUN (BLOOD UREA NITROGEN) 12 MG/DL (6-23); CALCIUM, SERUM 8.6 MG/DL (8.5-10.4); CHLORIDE, SERUM 103 MMOL/L (96-112); CO2 (CARBON DIOXIDE) 29 MMOL/L (24-34); CREATININE 0.65 MG/DL (0.70-1.30); GFR AFRICAN AMERICAN 152 ML/MIN (>=60); GFR NON AFRICAN AMERICAN 131 ML/MIN (>=60); GLUCOSE, SERUM 88 MG/DL (60-99); POTASSIUM, SERUM 4.3 MMOL/L (3.5-5.3); SODIUM, SERUM 136 MMOL/L (135-148)
[2016-08-31 05:14] LABS: PHOSPHORUS, SERUM 4.3 MG/DL (2.5-4.5)
[2016-09-01 00:06] LABS: HCV RNA VIRAL LOAD Not Detected (NOTDET)
[2016-09-01 10:00] LABS: BASOPHILS 0.4 %; BASOPHILS ABSOLUTE 0.04 10/3/uL (0.0-0.16); EOSINOPHILS 4.3 %; EOSINOPHILS ABSOLUTE 0.39 10/3/uL (0.0-0.53); HEMATOCRIT 38.3 % (40.0-51.0); HEMOGLOBIN 13.3 g/dL (13.6-17.8); IMMATURE GRANULOCYTES ABSOLUTE 0.09 10/3/uL (0.0-0.11); LYMPHOCYTES 28.5 %; LYMPHOCYTES ABSOLUTE 2.58 10/3/uL (0.67-4.30); MEAN CORPUS HGB CONC 34.7 g/dL (32.0-36.0); MEAN CORPUSCULAR HEMOGLOB 29.5 pg (26.0-34.0); MEAN CORPUSCULAR VOLUME 84.9 fL (80-100); MEAN PLATELET VOLUME 9.1 fL (9.2-13.0); MONOCYTES ABSOLUTE 0.72 10/3/uL (0.21-1.20); NEUTROPHILS 57.8 %; NEUTROPHILS ABSOLUTE 5.23 10/3/uL (2.02-8.40); PLATELET COUNT 340 10/3/uL (150-400); RBC DISTRIBUTION WIDTH 14.4 % (12.0-16.0); RED CELL COUNT 4.51 10/6/uL (4.7-6.1)
[2016-09-01 10:01] LABS: MANUAL DIFF NO %; WHITE BLOOD CELLS 9.1 10/3/uL (4.5-10.5)
[2016-09-01 10:15] LABS: PHOSPHORUS, SERUM 3.7 MG/DL (2.5-4.5)
[2016-09-01 18:03] LABS: HEPATITIS B CORE AB TOTAL Reactive (NR)
[2016-09-02 12:06] LABS: BASOPHILS 0.5 %; BASOPHILS ABSOLUTE 0.03 10/3/uL (0.0-0.16); EOSINOPHILS 3.8 %; EOSINOPHILS ABSOLUTE 0.25 10/3/uL (0.0-0.53); HEMATOCRIT 38.2 % (40.0-51.0); HEMOGLOBIN 13.2 g/dL (13.6-17.8); IMMATURE GRANULOCYTES 0.6 %; IMMATURE GRANULOCYTES ABSOLUTE 0.04 10/3/uL (0.0-0.11); LYMPHOCYTES 35.7 %; LYMPHOCYTES ABSOLUTE 2.34 10/3/uL (0.67-4.30); MEAN CORPUS HGB CONC 34.6 g/dL (32.0-36.0); MEAN CORPUSCULAR HEMOGLOB 29.1 pg (26.0-34.0); MEAN CORPUSCULAR VOLUME 84.1 fL (80-100); MEAN PLATELET VOLUME 8.6 fL (9.2-13.0); MONOCYTES 6.7 %; MONOCYTES ABSOLUTE 0.44 10/3/uL (0.21-1.20); NEUTROPHILS 52.7 %; NEUTROPHILS ABSOLUTE 3.46 10/3/uL (2.02-8.40); PLATELET COUNT 317 10/3/uL (150-400); RBC DISTRIBUTION WIDTH 14.7 % (12.0-16.0); RED CELL COUNT 4.54 10/6/uL (4.7-6.1); WHITE BLOOD CELLS 6.6 10/3/uL (4.5-10.5)
[2016-09-02 12:07] LABS: MANUAL DIFF NO %
[2016-09-02 12:20] LABS: BUN (BLOOD UREA NITROGEN) 13 MG/DL (6-23); CALCIUM, SERUM 8.6 MG/DL (8.5-10.4); CHLORIDE, SERUM 104 MMOL/L (96-112); CO2 (CARBON DIOXIDE) 28 MMOL/L (24-34); CREATININE 0.83 MG/DL (0.70-1.30); GFR AFRICAN AMERICAN 138 ML/MIN (>=60); GFR NON AFRICAN AMERICAN 119 ML/MIN (>=60); GLUCOSE, SERUM 98 MG/DL (60-99); SODIUM, SERUM 137 MMOL/L (135-148)
[2016-09-02 23:32] LABS: HBE AG Non Reactive (NR)
[2016-09-06 13:26] LABS: CREATININE 0.8 MG/DL (0.70-1.30); VANCOMYCIN TROUGH 17.6 MCG/ML (10.0-20.0)
[2016-10-07] MEDS ORDERED: OXYMORPHONE PO (02:29)
[2016-10-07] MEDS ORDERED: AMB10 PO (02:33)
[2016-10-07] MEDS ORDERED: [UNRECOGNIZED DRUG - OTHER] PO (05:11)
== END 2016-09-07 13:38 | disposition left against medical advice (07) | DRG 871 ==
LOC: ER 20:45 → MIC 23:31 → 7NO 08-31 10:55
PROVIDERS: Emergency Medicine; Hospitalist; Internal Medicine; Internal Medicine Critical Care Medicine; Internal Medicine Infectious Disease; Internal Medicine Pulmonary Disease
PROC: 02HV33Z Insertion of Infusion Device into Superior Vena Cava, Percutaneous Approach (ICD-10-PCS; principal; 2016-08-27)
PROC: 4A02X4A Measurement of Cardiac Electrical Activity, Guidance, External Approach (ICD-10-PCS; 2016-08-27)
PROC: B246ZZ4 Ultrasonography of Right and Left Heart, Transesophageal (ICD-10-PCS; 2016-09-02)
DX: A41.02 Sepsis due to Methicillin resistant Staphylococcus aureus (principal); R65.21 Severe sepsis with septic shock; I33.0 Acute and subacute infective endocarditis; E44.0 Moderate protein-calorie malnutrition; J18.9 Pneumonia, unspecified organism; Z68.1 Body mass index [BMI] 19.9 or less, adult; B18.2 Chronic viral hepatitis C; Z88.5 Allergy status to narcotic agent; Z88.8 Allergy status to other drugs, medicaments and biological substances; F17.210 Nicotine dependence, cigarettes, uncomplicated; F12.10 Cannabis abuse, uncomplicated; F14.10 Cocaine abuse, uncomplicated; F15.10 Other stimulant abuse, uncomplicated; Z83.3 Family history of diabetes mellitus; B95.62 Methicillin resistant Staphylococcus aureus infection as the cause of diseases classified elsewhere; I36.1 Nonrheumatic tricuspid (valve) insufficiency
CPT/HCPCS: 36569; 36597; 71010; 76376; 80048; 80053; 80202; 80305; 80307; 81001; 82330; 82533; 82550; 82565; 83605; 83735; 83880; 84100; 84145; 84443; 84484; 85025; 85610; 85730; 86592; 86704; 87040; 87077; 87150; 87186; 87340; 87350; 87449; 87517; 87522; 87641; 87804; 93005; 93306; 93312; 93320; 93325; 96365; 96523; 99291; A9270-GY; C1751; G0463; J0692; J1170; J2405; J3370; J3475